=== PATIENT | female | born 1990 | race Caucasian/White ===

== ENCOUNTER → 2018-10-05 09:46 | Outpatient (CLI) | payer OTHER, SELFPAY ==
[2018-10-05 10:16] LABS: Add Manual Diff / Slide Review NO; Basophils Absolute Auto 0 /uL (0-100); Basophils Percent Auto 0.5 % (0-2); Eosinophils Absolute Auto 300 /uL (0-450); Eosinophils Percent Auto 4.2 % (2-4); Hematocrit 42.4 % (36-46); Hemoglobin 15.1 g/dL (12.0-16.0); Lymphocytes Absolute Auto 1900 /uL (1100-4500); Lymphocytes Percent Auto 29.8 % (25-40); Mean Corpuscular HGB Conc 35.5 % (30-36); Mean Corpuscular Hemoglobin 32.5 PG (26-34); Mean Corpuscular Volume 91.6 fL (80-100); Monocytes Absolute Auto 400 /uL (0-900); Neutrophils Absolute Auto 3800 /uL (1500-7000); Neutrophils Percent Auto 59.5 % (50-75); Platelet Count 245 X10^3/uL (150-400); Red Blood Cell Count 4.63 X10^6/uL (4.0-5.2); Red Cell Distribution Width 12.5 % (11.6-14.8); White Blood Cell Count 6.4 X10^3/uL (4.5-11.0)
[2018-10-05 11:03] LABS: Erythrocyte Sedimentation Rate 2 MM/HR (0-20)
[2018-10-05 11:52] LABS: Alanine Aminotransferase 23 IU/L (9-52); Albumin 4.5 g/dL (3.5-5.0); Albumin Globulin Ratio 1.7 (1.0-2.8); Alkaline Phosphatase 55 U/L (38-126); Aspartate Aminotransferase 19 IU/L (14-36); BUN Creatinine Ratio 21.4 (6-22); Bilirubin Total 0.4 mg/dL (0.2-1.3); Blood Urea Nitrogen 15 mg/dL (7-17); Calcium 9.2 mg/dL (8.4-10.2); Carbon Dioxide 27 mmol/L (22-32); Chloride 103 mmol/L (98-107); Cholesterol 154 mg/dL (140-199); Estimated Glomerular Filt Rate > 60.0 mL/min (>60); Globulin 2.6 g/dL (1.7-4.1); Glucose 95 mg/dL (70-100); HDL Cholesterol 36 mg/dL (40-60); HEMOLYSIS < 15 (0-50); LDL Cholesterol Calculated 103 mg/dL (<100); Potassium 4.2 mmol/L (3.4-5.1); Sodium 140 mmol/L (137-145); Total Protein 7.1 g/dL (6.3-8.2); Triglycerides 73 mg/dL (35-150)
[2018-10-05 12:24] LABS: Appearance Urine UA CLOUDY; Bilirubin Urine UA NEGATIVE (NEGATIVE); Color Urine UA YELLOW; Glucose Urine UA NEGATIVE (Negative); Ketones Urine UA NEGATIVE (NEGATIVE); Leukocyte Esterase Urine UA 2+ (NEGATIVE); Nitrite Urine UA POSITIVE (Negative); Occult Blood Urine UA 1+ (Negative); Protein Urine UA NEGATIVE (Negative); Specific Gravity Urine UA 1.025 (1.000-1.035); Urobilinogen Urine UA 0.2 E.U./dL (0.2); pH Urine UA 5.5 (4.5-8.0)
[2018-10-05 12:26] LABS: Rheumatoid Factor < 8.6 IU/mL (<12.0)
[2018-10-05 12:27] LABS: Thyroid Stimulating Hormone 1.02 uIU/mL (0.47-4.68)
[2018-10-05 12:45] LABS: Bacteria Urine Many (>30); Culture Indicated Urine Cult Not Indicated; RBC Urine 1-5/HPF (0-5/HPF); Squamous Epithelial Cell Urine 5-10 /HPF (0-5/HPF); WBC Urine 5-10/HPF (0-5/HPF)
[2018-10-06 13:48] LABS: Lyme SCREEN w/ Reflex IgG IgM < 0.90 (< 0.90)
[2018-10-07 20:41] LABS: ANA Pattern Speckled; ANA Screen, IFA Positive (Negative); ANA Titer 1:40 titer (<1:40)
== END ==
PROVIDERS: Visit Provider Family Medicine
DX: F32.9 Major depressive disorder, single episode, unspecified (principal); F41.9 Anxiety disorder, unspecified; G89.4 Chronic pain syndrome; M54.6 Pain in thoracic spine
CPT/HCPCS: 36415; 80053; 80061; 81003; 81015; 84443; 85025; 85651; 86038; 86430; 86618

== ENCOUNTER → 2020-03-28 15:51 | Outpatient (CLI) | payer BC, SELFPAY | PROVIDERS: PCP Family Medicine; Referring Provider Family Medicine; Visit Provider Family Medicine | DX: Z00.01 Encounter for general adult medical examination with abnormal findings (principal); Z11.3 Encounter for screening for infections with a predominantly sexual mode of transmission | CPT/HCPCS: 87491; 87591 ==

== ENCOUNTER → 2020-07-26 09:22 | Outpatient (CLI) | payer BC, SELFPAY | PROVIDERS: PCP Family Medicine; Visit Provider Student in an Organized Health Care Education/Training Program | DX: N39.0 Urinary tract infection, site not specified (principal) | CPT/HCPCS: 87077; 87086; 87186 ==

== ENCOUNTER → 2021-07-05 17:58 | Outpatient (CLI) | payer OTHER, SELFPAY ==
[2021-07-05 19:30] LABS: COVID19 -Nasal RAPID POSITIVE (Negative)
== END ==
PROVIDERS: PCP Family Medicine; Visit Provider Nurse Practitioner Critical Care Medicine
DX: U07.1 COVID-19 (principal); Z20.822 Contact with and (suspected) exposure to COVID-19
CPT/HCPCS: 87635

== ENCOUNTER 2024-02-01 11:14 | Emergency (ER) | payer OTHER, SELFPAY ==
[2024-02-01 11:24] VITALS: BP 132/77; PULSE 71; RESP 18; TEMP 36.6; O2SAT 97; BMI 31.3
[2024-02-01] MEDS: TET,DIPH,PERTUSS(ACELL),VAC/PF 0.5 ML SYRINGE IM (12:04)
--- NOTE | 2024-02-01 13:16 | DI.RAD.S_ITS ---
PROCEDURE: XR HAND RT MIN 3V INDICATIONS: dog bite TECHNIQUE: 3 views of the hand(s) acquired. COMPARISON: None. FINDINGS: Bones: No fractures or dislocations. Carpal bones are normally aligned. No suspicious bony lesions. Soft tissues: No suspicious soft tissue calcifications. IMPRESSION: No acute bony abnormality. Dictated by: Karthikeyan Alvarado M.D. on 02/01/2024 at 13:37 Approved by: Karthikeyan Alvarado M.D. on 02/01/2024 at 13:37
--- NOTE | 2024-02-01 13:17 | ED_ITS ---
HPI - Animal Bite <Alma Delia Ulloa PA-C - Last Filed: 02/01/24 13:53> General Chief Complaint: Animal Bite Stated Complaint: Bite by a Dog Time Seen by Provider: 02/01/24 13:12 Source: patient Mode of arrival: Ambulatory History of Present Illness HPI narrative: 34-year-old female presents to the ED status post a dog bite to her right hand which was sustained just prior to arrival today. 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 Patient endorses that the dog bit her out of fear. Tetanus unknown. No numbness, tingling, weakness. Patient states pain at the site of the bite and some stiffness in the hand. Related Data Home Medications Medication Instructions Recorded Confirmed cyanocobalamin (vitamin B-12) 1,000 mcg PO DAILY 10/04/18 08/10/20 1,000 mcg capsule multivitamin 1 tab PO DAILY 10/04/18 08/10/20 Previous Rx's Medication Instructions Recorded sertraline 100 mg tablet (Zoloft) 200 mg (2 x 100 mg) PO DAILY #180 08/10/20 tabs amoxicillin 875 mg-potassium 1 tab PO BID 7 days #14 tabs 02/01/24 clavulanate 125 mg tablet Allergies Allergy/AdvReac Type Severity Reaction Status Date / Time metoprolol Allergy Intermediate Hives Verified 02/01/24 11:28 Review of Systems <Alma Delia Ulloa PA-C - Last Filed: 02/01/24 13:53> Constitutional Constitutional: Denies chills, Denies fatigue, Denies fever(s), Denies frequent falls, Denies lethargy and Denies weakness Eyes Eyes: Denies change in vision, Denies eye discharge, Denies irritation and Denies loss of vision ENT Ears, Nose, Mouth, and Throat: Denies change in voice, Denies dizziness, Denies neck pain, Denies sore throat and Denies throat swelling Cardiovascular Cardiovascular: Denies chest pain, Denies irregular heart rhythm, Denies lightheadedness, Denies palpitations, Denies dyspnea, Denies dyspnea on exertion and Denies orthopnea Respiratory Respiratory: Denies cough, Denies dyspnea, Denies dyspnea on exertion and Denies wheezing Gastrointestinal Gastrointestinal: Denies abdominal pain, Denies change in bowel habits, Denies diarrhea, Denies nausea and Denies vomiting Musculoskeletal Musculoskeletal: Denies neck pain and Denies numbness Integumentary/Breasts Skin/Breast: Denies pruritus, Denies erythema, Denies rash and Denies wounds Comments: Dog bite to right hand. Neurologic Neurologic: Denies behavioral changes, Denies confusion, Denies dizziness, Denies frequent falls, Denies loss of vision, Denies numbness and Denies weakness Psychiatric Psychiatric: Denies anxiety, Denies behavioral changes, Denies confusion, Denies depression, Denies homicidal ideation and Denies suicidal ideation Endocrine Endocrine: Denies fatigue, Denies flushing and Denies palpitations Hematologic/Lymphatic Hematologic/Lymphatic: Denies easy bruising Allergic/Immunologic Allergic/Immunologic: Denies urticaria, Denies throat swelling and Denies wheezing Patient History <Alma Delia Ulloa PA-C - Last Filed: 02/01/24 13:53> Medical History External hemorrhoid Ankle pain (~2014) Chicken pox (~1997) Chlamydia (~2014) Frequent UTI Strain of right gastrocnemius muscle Fatigue POTS (postural orthostatic tachycardia syndrome) (~2013) Anxiety (~2012) Depression (~2012) Fibromyalgia (~2013) Surgical History Anesthesia History of oral surgery History of ankle surgery (~2015) History of tonsillectomy and adenoidectomy (~1997) Family History Mother Lupus Family history of thyroid problem Grandfather Diabetes mellitus Social History Smoking Status: Current some day smoker Tobacco: How many years used: 12 alcohol intake: current Smoking Status: Current some day smoker tobacco type: cigarettes alcohol intake frequency: 0-2 drinks per day Substance Use Type: does not use Exam <Alma Delia Ulloa PA-C - Last Filed: 02/01/24 13:53> Narrative Exam Narrative: Const General:?cooperative, healthy appearing and comfortable [facility] Head:?normal to inspection Ears:?hearing grossly normal bilaterally Nose:?external nose normal Face and sinus:?normal facial exam and sinuses nontender Mouth:?oral mucosae normal Throat:?posterior oropharynx normal Eyes General:?appearance normal, both eyes and all related structures Neck Neck:?normal visual inspection and no lymphadenopathy noted Resp Effort & Inspection:?normal respiratory effort Auscultation:?clear to auscultation bilaterally Cardio Rate:?regular rate Rhythm:?regular rhythm Integumentary There is a puncture wound to the palmar aspect of the right hand as well as the dorsal aspect. Strength and sensation is intact. Full range of motion. Neurovascularly intact. Bleeding is controlled. Compartments soft. Neuro General:?patient alert, patient awake and patient oriented x3 Initial Vital Signs Initial Vital Signs: Vital Signs Temperature 97.9 F 02/01/24 11:24 Pulse Rate 71 02/01/24 11:24 Respiratory Rate 18 02/01/24 11:24 Blood Pressure 132/77 02/01/24 11:24 Pulse Oximetry 97 02/01/24 11:24 Oxygen Delivery Method Room Air 02/01/24 11:24 <Blanche Fishman DO - Last Filed: 02/02/24 07:47> Initial Vital Signs Initial Vital Signs: Vital Signs Temperature 97.9 F 02/01/24 11:24 Pulse Rate 71 02/01/24 11:24 Respiratory Rate 18 02/01/24 11:24 Blood Pressure 132/77 02/01/24 11:24 Pulse Oximetry 97 02/01/24 11:24 Oxygen Delivery Method Room Air 02/01/24 11:24 Course <Alma Delia Ulloa PA-C - Last Filed: 02/01/24 13:53> Orders Ordered: Discontinued Medications Diphtheria/Tetanus/Acell Pertussis (Tet,Diph,Pertuss(Acell),Vac/Pf 0.5 Ml Syringe) 0.5 ml IM .ONCE ONE Stop: 02/01/24 11:43 Last Admin: 02/01/24 12:04 Dose: 0.5 ml Documented By: ES Vital Signs Vital signs: Vital Signs - 8 hr 02/01/24 11:24 Temperature 97.9 F Pulse Rate 71 Respiratory Rate 18 Blood Pressure 132/77 Pulse Oximetry 97 Oxygen Delivery Method Room Air <Blanche Fishman DO - Last Filed: 02/02/24 07:47> Orders Ordered: Discontinued Medications Diphtheria/Tetanus/Acell Pertussis (Tet,Diph,Pertuss(Acell),Vac/Pf 0.5 Ml Syringe) 0.5 ml IM .ONCE ONE Stop: 02/01/24 11:43 Last Admin: 02/01/24 12:04 Dose: 0.5 ml Documented By: TITUS Vital Signs Vital signs: Vital Signs - 8 hr 02/01/24 11:24 Temperature 97.9 F Pulse Rate 71 Respiratory Rate 18 Blood Pressure 132/77 Pulse Oximetry 97 Oxygen Delivery Method Room Air MDM - Animal Bite <Alma Delia Ulloa PA-C - Last Filed: 02/01/24 13:53> MDM Narrative Medical decision making narrative: 34-year-old female presents to the ED status post a dog bite to her right hand which was sustained just prior to arrival today. Will obtain x-rays to rule out fracture/foreign body. Patient's tetanus was updated. X-ray without acute findings. Antibiotics prescribed. Wound care and signs of infection discussed with patient. ED return precautions discussed with patient. Patient verbalized understanding. Medical records reviewed: Yes Discharge Plan Departure Patient Disposition: Home Clinical Impression: Dog bite Qualifiers: Encounter type: initial encounter Qualified Code(s): W54.0XXA - Bitten by dog, initial encounter Instructions: DI for Dog Bite Activity Restrictions/Additional Instructions: You were evaluated in the ED today for a dog bite. Your x-rays were normal. Your tetanus was updated today, which is good for the next 10 years. You are being started on antibiotics since dog bites on hands can get easily infected. Please watch for signs of infection including worsening redness, pain, swelling, warmth, discharge. Return to the ED if you note any signs of infection or if you experience any worsening symptoms such as numbness, tingling, weakness. Prescriptions: New amoxicillin-pot clavulanate 875-125 mg tablet 1 tab PO BID 7 Days Qty: 14 0RF No Action multivitamin tablet 1 tab PO DAILY cyanocobalamin (vitamin B-12) 1,000 mcg capsule 1,000 mcg PO DAILY sertraline [Zoloft] 100 mg tablet 200 mg PO DAILY Qty: 180 3RF Referrals: Edgardo Reis MD [Primary Care Provider] - Stand Alone Forms: Patient Portal/API ED Sign-out <Blanche Fishman DO - Last Filed: 02/02/24 07:47> Cosign ED Attending Coshcarlesature Attestation: I was immediately available in the department for consultation.
[2024-02-01 14:01] VITALS: BP 130/76; PULSE 67; RESP 18; TEMP 36.7; O2SAT 100
== END 2024-02-01 14:02 | disposition home or self-care (01) ==
PROVIDERS: Emergency Provider Student in an Organized Health Care Education/Training Program; PCP Family Medicine
DX: S61.451A Open bite of right hand, initial encounter (principal); W54.0XXA Bitten by dog, initial encounter; Z23 Encounter for immunization
CPT/HCPCS: 73130; 90471; 99283; 90715

== ENCOUNTER → 2024-04-07 18:54 | Outpatient (CLI) | payer OTHER, SELFPAY | PROVIDERS: PCP Family Medicine; Visit Provider Physician Assistant Medical | DX: R30.0 Dysuria (principal) | CPT/HCPCS: 87086 ==

== ENCOUNTER → 2024-07-04 16:57 | Outpatient (CLI) | payer OTHER, SELFPAY | PROVIDERS: PCP Family Medicine; Visit Provider Nurse Practitioner Family | DX: R30.0 Dysuria (principal) | CPT/HCPCS: 87077; 87086 ==

== ENCOUNTER → 2025-01-12 17:55 | Outpatient (CLI) | payer OTHER, SELFPAY | PROVIDERS: PCP Family Medicine; Visit Provider Student in an Organized Health Care Education/Training Program | DX: R30.0 Dysuria (principal) | CPT/HCPCS: 87077; 87086; 87186 ==